=== PATIENT | female | born 1995 | race Caucasian/White ===

== ENCOUNTER 2016-07-13 15:30 | Outpatient (RCR) | payer BC ==
[2016-05-05 18:48] VITALS: BP 117/53; PULSE 80; TEMP 97.8
[2016-05-25 15:45] VITALS: BP 121/62; PULSE 88; TEMP 97.9
[2016-06-08 13:47] VITALS: BP 125/75; PULSE 80; TEMP 97.7
[~2016-07-13 15:30] MED LIST: 00186-0370-20 IH; 00186-0372-20 IH; AMETHYST 20 MCG1 TAB PO; DEPO-PROVE400 MG/1 M IM; MULTIVITAMIN WI1 CTB PO; OMNICEF 300MG300 MG PO; PATANASE0.6% NS; PREDNISONE20 MG PO; PROAIR HFA0.09 MG/AC IH; SINGULAIR 110 MG/TAB PO; ZOLOFT 25MG25 MG PO; ZYRTEC 10MG10 MG PO
[2016-07-13 16:22] VITALS: BP 136/86; PULSE 94; TEMP 97.8
[2017-02-02] MEDS ORDERED: BREO IH (07:28)
[2017-02-02] MEDS ORDERED: ADIPEX-P37.5 MG PO (07:30)
== END 2016-08-02 | disposition home or self-care (01) ==
LOC: EUO
DX: J45.998 Other asthma (principal)

== ENCOUNTER 2016-10-28 13:00 | Outpatient (RCR) | payer BC ==
[2016-08-11 14:30] VITALS: BP 134/73; PULSE 84; TEMP 97.9
[2016-08-30 15:33] VITALS: BP 127/74; PULSE 86; TEMP 97.2
[2016-09-23 17:20] VITALS: BP 142/90; PULSE 86; TEMP 97.7
[2016-10-12 12:10] VITALS: BP 141/73; PULSE 92; TEMP 98
[~2016-10-28] VITALS: Ht 160 cm; Wt 81.8 kg
[2016-11-01 12:10] VITALS: BP 134/74; PULSE 87; TEMP 98.5
[2017-02-02] MEDS ORDERED: BREO IH (07:28)
[2017-02-02] MEDS ORDERED: ADIPEX-P37.5 MG PO (07:30)
== END 2016-11-09 | disposition home or self-care (01) ==
LOC: EUO
DX: J45.998 Other asthma (principal)

== ENCOUNTER → 2017-03-09 | Outpatient (RCR) | payer BC ==
[2016-12-09 13:26] VITALS: BP 140/74; PULSE 83; TEMP 98.6
[2017-02-02 07:25] VITALS: BP 142/95; PULSE 85; TEMP 97.4
[2017-02-21 10:44] VITALS: BP 134/86; PULSE 93; TEMP 98.6
[~2017-03-09] VITALS: Ht 160 cm; Wt 89.0 kg
[~2017-03-09] MED LIST changes: +ADIPEX-P37.5 MG PO; +BREO IH
[2017-03-09 11:32] VITALS: BP 138/78; PULSE 90; TEMP 97.9
== END ==
LOC: EUO
DX: J45.909 Unspecified asthma, uncomplicated (principal); Z79.899 Other long term (current) drug therapy

== ENCOUNTER 2017-05-30 14:30 | Outpatient (RCR) | payer BC ==
[2017-03-24 14:50] VITALS: BP 139/89; PULSE 86; TEMP 98.9
[2017-04-17 14:34] VITALS: BP 135/77; PULSE 91; TEMP 97.7
[2017-05-01 17:13] VITALS: BP 145/82; PULSE 92; TEMP 97.7
[~2017-05-30] VITALS: Ht 160 cm; Wt 88.9 kg
== END 2017-06-06 08:32 | disposition home or self-care (01) ==
LOC: EUO 14:30
DX: J45.909 Unspecified asthma, uncomplicated (principal); Z79.899 Other long term (current) drug therapy

== ENCOUNTER 2017-10-09 13:00 | Outpatient (RCR) | payer BC ==
[2017-07-12 13:57] VITALS: BP 138/86; PULSE 106; TEMP 97.7
[2017-07-24 13:44] VITALS: BP 138/85; PULSE 85; TEMP 98
[2017-09-04 17:00] VITALS: BP 131/85; PULSE 81; TEMP 97.8
[2017-09-25 15:10] VITALS: BP 137/91; PULSE 96; TEMP 98.4
[~2017-10-09] VITALS: Ht 160 cm; Wt 87.5 kg
[2017-10-09 12:57] VITALS: BP 141/89; PULSE 110; TEMP 97.9
== END 2017-10-10 | disposition home or self-care (01) ==
LOC: EUO
DX: J45.909 Unspecified asthma, uncomplicated (principal); Z79.899 Other long term (current) drug therapy

== ENCOUNTER 2017-10-23 13:06 | Outpatient (RCR) | payer BC ==
[~2017-10-23] VITALS: Ht 160 cm; Wt 88.9 kg
[2017-10-23 13:43] VITALS: BP 148/90; PULSE 88; TEMP 97.8
== END 2017-10-23 16:00 | disposition home or self-care (01) ==
LOC: EUO 13:06
DX: J45.909 Unspecified asthma, uncomplicated (principal); Z79.899 Other long term (current) drug therapy